=== PATIENT | male | born 1950 | race Two or more races ===

== ENCOUNTER 2018-08-08 18:23 | Inpatient (IN) | payer MEDICARE, OTHER ==
[~2018-08-08] VITALS: Ht 165.1 cm; Wt 99.8 kg
[2018-08-08 18:23] VITALS: BP 104/63
[2018-08-08] MEDS ORDERED: Nitroglycerin 2% oint pkt TOPIC ONE (18:30)
--- NOTE | 2018-08-08 18:34 | Emergency Room Report ---
History of Present Illness General Chief Complaint: Chest Pain Source: Patient, EMS Present Illness HPI 60-year-old male with history of coronary disease status post coronary artery stent, hypertension, diabetes, hyperlipidemia presents from urgent care center outside of [facility] for midsternal nonradiating chest pressure, he was given nitroglycerin prior to arrival which he reports has helped, and he confirms that he has an aspirin allergy so has refused it. His stop attacher is Dr. Lee at [facility]; he reports the symptoms have been intermitted but worried him more today because last night he felt SOB while trying to sleep. He denies N/V, hemoptysis, f/c, leg pain. He is not currently having chest pressure. Allergies: Coded Allergies: ASPIRIN (Verified Allergy, Unknown, 08/08/18) Patient History Past Medical History: see triage record Reviewed Nursing Documentation: PMH: Agreed; PSxH: Agreed Nursing Documentation-PMH Past Medical History: No History, Except For Hx Cardiac Problems: Yes - angio with stents, high cholesterol Hx Hypertension: Yes Hx Diabetes: Yes Review of Systems All Other Systems: negative except mentioned in HPI Physical Exam Vital Signs Date Time Temp Pulse Resp B/P (MAP) Pulse Ox O2 Delivery O2 Flow Rate FiO2 08/08/18 18:14 98.2 88 18 104/63 98 Room Air Sp02 EP Interpretation: reviewed, normal General Appearance: no apparent distress, alert, non-toxic Head: normocephalic Eyes: bilateral eye normal inspection, bilateral eye PERRL, bilateral eye EOMI ENT: normal ENT inspection, hearing grossly normal, normal pharynx, no angioedema, normal voice, moist mucus membranes Neck: normal inspection, full range of motion, supple, supple/symm/no masses Respiratory: chest non-tender, lungs clear, normal breath sounds, chest symmetrical, palpation of chest normal Cardiovascular #1: normal peripheral pulses, regular rate, rhythm, edema - 1+B/ L LE edema to distal tibias Cardiovascular #2: 2+ radial (R), 2+ radial (L) Gastrointestinal: normal inspection, non tender, soft, no mass, no guarding, no rebound Rectal: deferred Genitourinary: normal inspection, no CVA tenderness Musculoskeletal: back normal, gait/station normal, normal range of motion, non- tender, no calf tenderness Neurologic: alert, responsive, ice grinder III-XII nml as tested, motor strength/tone normal, sensory intact, speech normal Psychiatric: judgement/insight normal, memory normal, mood/affect normal, no suicidal/homicidal ideation Skin: normal color, no rash, warm/dry, normal turgor Lymphatic: no adenopathy Medical Decision Making Diagnostic Impression: Primary Impression: Chest pain Additional Impression: ACS (acute coronary syndrome) ER Course Patient currently with no active chest pain, nitroglycerin paste chest wall, multiple risk factors, sent by his stop attacher, but [facility] divert, will admit. EKG Diagnostic Results EKG Time: 18:33 EP Interpretation: no st-t changes Rate: normal ST Segments: no acute changes ASA given to the pt in ED: No Rhythm Strip Diag. Results Rhythm Strip Time: 18:46 EP Interpretation: yes Rate: 77 Rhythm: NSR, no PVC's, no ectopy Chest X-Ray Diagnostic Results Chest X-Ray Diagnostic Results : Chest X-Ray Ordered: Yes # of Views/Limited/Complete: 1 View Indication: Chest Pain EP Interpretation: Yes Interpretation: no consolidation, no effusion, no pneumothorax, other - pulm vasc congestion Impression: No acute disease Electronically Signed by: Kelly Faulkner MD Last Vital Signs Date Time Temp Pulse Resp B/P (MAP) Pulse Ox O2 Delivery O2 Flow Rate FiO2 08/08/18 18:14 98.2 88 18 104/63 98 Room Air Disposition: ADMITTED INPATIENT Condition: Stable Signed Out To: KELLY Yung M.D Aug 08, 2018 18:34
[2018-08-08 19:14] LABS: BASOPHILS % (AUTO) 0.5 % (0.0-2.0); HEMATOCRIT 45.5 % (42.0-52.0); HEMOGLOBIN 14.9 G/DL (14.2-18.0); LYMPHOCYTES % (AUTO) 29.5 % (20.0-45.0); MEAN CORPUSCULAR VOLUME 86 FL (80-99); MONOCYTES % (AUTO) 5.4 % (1.0-10.0); NEUTROPHILS % (AUTO) 63.6 % (45.0-75.0); PLATELET COUNT 192 K/UL (150-450); RED BLOOD COUNT 5.29 M/UL (4.70-6.10); RED CELL DISTRIBUTION WIDTH 12.2 % (11.6-14.8); WHITE BLOOD COUNT 7.4 K/UL (4.8-10.8)
[2018-08-08 19:27] LABS: ANION GAP 11 mmol/L (5-15); BLOOD UREA NITROGEN 18 mg/dL (7-18); CALCIUM 9.1 MG/DL (8.5-10.1); CARBON DIOXIDE 29 MMOL/L (21-32); CHLORIDE 101 MMOL/L (98-107); CREATININE 1.2 MG/DL (0.55-1.30); POTASSIUM 3.4 MMOL/L (3.5-5.1); SODIUM 141 MMOL/L (136-145)
[2018-08-08 19:39] LABS: ALANINE AMINOTRANSFERASE 72 U/L (12-78); ALBUMIN 3.5 G/DL (3.4-5.0); ALBUMIN/GLOBULIN RATIO 0.7 (1.0-2.7); ALKALINE PHOSPHATASE 51 U/L (46-116); ASPARTATE AMINO TRANSFERASE 36 U/L (15-37); BILIRUBIN,TOTAL 0.3 MG/DL (0.2-1.0)
[2018-08-08 20:41] VITALS: BP 111/65
[2018-08-08] MEDS ORDERED: DALIRESP500 MCG PO (21:17)
[2018-08-08 22:05] VITALS: BP 144/86
[2018-08-08 22:25] VITALS: BP 113/62
[2018-08-08] MEDS ORDERED: Metoprolol 25mg tab ORAL SCH (23:30)
[2018-08-09] VITALS: BP 124/70
[2018-08-09 04:00] VITALS: BP 126/82
[2018-08-09] MEDS ORDERED: Heparin 5000 units/ml inj SUBQ SCH (06:00)
[2018-08-09] MEDS ORDERED: NovoLOG Insulin Flexpen SUBQ SCH ×2 (06:30)
[2018-08-09 08:00] VITALS: BP 128/82
[2018-08-09 08:35] LABS: BASOPHILS % (AUTO) 0.6 % (0.0-2.0); EOSINOPHILS % (AUTO) 1.3 % (0.0-3.0); HEMATOCRIT 46.1 % (42.0-52.0); HEMOGLOBIN 15.2 G/DL (14.2-18.0); LYMPHOCYTES % (AUTO) 31.9 % (20.0-45.0); MEAN CORPUSCULAR VOLUME 87 FL (80-99); MONOCYTES % (AUTO) 6.9 % (1.0-10.0); NEUTROPHILS % (AUTO) 59.4 % (45.0-75.0); PLATELET COUNT 213 K/UL (150-450); RED BLOOD COUNT 5.31 M/UL (4.70-6.10); RED CELL DISTRIBUTION WIDTH 12.3 % (11.6-14.8); WHITE BLOOD COUNT 7.3 K/UL (4.8-10.8)
[2018-08-09 09:14] LABS: ALANINE AMINOTRANSFERASE 70 U/L (12-78); ALBUMIN 3.6 G/DL (3.4-5.0); ALBUMIN/GLOBULIN RATIO 0.8 (1.0-2.7); ALKALINE PHOSPHATASE 53 U/L (46-116); ANION GAP 6 mmol/L (5-15); ASPARTATE AMINO TRANSFERASE 33 U/L (15-37); BILIRUBIN,TOTAL 0.4 MG/DL (0.2-1.0); BLOOD UREA NITROGEN 16 mg/dL (7-18); CALCIUM 9.2 MG/DL (8.5-10.1); CARBON DIOXIDE 30 MMOL/L (21-32); CHLORIDE 105 MMOL/L (98-107); CHOLESTEROL 161 MG/DL (< 200); HDL CHOLESTEROL 55 MG/DL (40-60); POTASSIUM 4.8 MMOL/L (3.5-5.1); SODIUM 141 MMOL/L (136-145); TRIGLYCERIDES 112 MG/DL (30-150)
--- NOTE | 2018-08-09 09:20 | Diagnostic Imaging Report ---
Indication: Chest pain Technique: One view of the chest Comparison: none Findings: Suboptimal inspiration. Lungs and pleural spaces are clear. There is degenerative spondylosis Impression: No acute process
--- NOTE | 2018-08-09 16:01 | Cardiology Report ---
APPROVED REPORT EKG Measurement Heart [id number] Normal sinus rhythm Right bundle branch block Abnormal ECG
--- NOTE | 2018-08-10 03:15 | History and Physical Report ---
DATE OF ADMISSION: 08/08/2018 REASON FOR ADMISSION: Chest pain in the setting of known coronary artery disease. HISTORY OF PRESENT ILLNESS: This 68-year-old [place] male has known history of coronary artery disease and has had a prior coronary stent procedure. He has several other risk factors for accelerated coronary atherosclerosis. He was referred to this emergency room by an urgent care center in the [facility] system where he presented with mid substernal nonradiating chest pressure that was unprovoked. The patient was given nitroglycerin in the field and improved. He was not given aspirin due to an allergy. The patient has had episodes of chest pain in the past, however, the patient was more concerned on this occasion because of associated shortness of breath and difficulty sleeping. The patient was chest pain-free upon arrival to the emergency room. MEDICATIONS: His medications prior to admission, reviewed and reconciled. ALLERGIES: Include aspirin. PAST MEDICAL HISTORY: Includes hypertension, coronary artery disease with stent, hyperlipidemia, type 2 diabetes mellitus. FAMILY HISTORY: Noncontributory. SOCIAL HISTORY: He denies smoking, alcohol, or substance abuse. REVIEW OF SYSTEMS: A 10-point review of systems performed. All systems otherwise negative other than pertinent data outlined above. PHYSICAL EXAMINATION: VITAL SIGNS: Afebrile, blood pressure 104/62, pulse 88, respiratory rate 18, and room air oxygen saturations of 98%. HEENT: Normocephalic and atraumatic. Conjunctivae pink. No xanthoma. Oropharynx clear. NECK: Supple. No bruits. Jugular venous pressure normal. LUNGS: Clear. CARDIAC: Regular rhythm and rate. Normal S1, S2 with no murmur, rub, or gallop. ABDOMEN: Soft, nontender. There is no CVA tenderness. CHEST WALL: With no elicited tenderness. EXTREMITIES: Without edema. Good distal pulses noted. NEUROLOGIC: Nonfocal. SKIN: Intact. DIAGNOSTIC DATA: Chest x-ray with no acute process. EKG with sinus rhythm, no acute ST-T wave changes. Troponin I negative. IMPRESSION: This is a 60-year-old male. He has known history of coronary artery disease and several risk factors for accelerated atherosclerosis. He presents with symptoms suggestive of an acute coronary event and is being admitted with diagnosis of acute coronary syndrome. PLAN OF CARE: 1. Cardiac monitoring. 2. Serial troponin levels. Oral clopidogrel in view of aspirin allergy. 3. Beta-blockade. 4. Anti-lipid therapy. 5. No recurring ischemia. 6. We will contact his primary caramel candy maker helper and try to obtain data regarding his most recent cardiac catheterization. Based on this data and his clinical course, consideration for transfer to pursue coronary angiography versus continued medical therapy. 7. We will follow. Rodo Henry M.D. DR: Nela JOB#: [id number] CC:
--- NOTE | 2018-08-11 08:16 | Discharge Summary ---
Discharge Summary Discharge Summary _ DATE OF ADMISSION: 08/08/2018 DATE OF DISCHARGE: 08/09/2018 Patient signed AGAINST MEDICAL ADVICE REASON FOR ADMISSION: 68 years old male with past medical history of hypertension, coronary artery disease with stent, hyperlipidemia, type 2 diabetes mellitus,was referred to the emergency room by urgent care center at [facility], where he presented with a mid substernal nonradiating chest pressure, that was unprovoked. Patient was given nitroglycerin in the field with improvement. Patient did not receive aspirin due to allergy. Patient had episodes of chest pain in the past, however the patient was more concerned on this occasion because of associated shortness of breath and difficulty sleeping. Upon evaluation in emergency room patient was chest pain-free. Vital signs were stable. Troponin was negative. EKG revealed sinus rhythm, no acute ischemic changes. Chest x-ray revealed no acute cardiopulmonary pathology. Patient admitted to rule out acute coronary syndrome due to several risk factors for accelerated atherosclerosis. HOSPITAL COURSE: Patient admitted to [facility]/cardiac monitoring floor. Second troponin was negative. No arrhythmia, no acute ischemic changes on telemetry. Patient started on antiplatelet therapy with Plavix in lieu of aspirin allergy and beta-martín. Lipid panel was stable. Statin was continued. Nitroglycerin was on board as needed. Blood pressure was stable with beta-martín. DVT prophylaxis provided. Supplemental oxygen was on board as needed to keep pulse oximetry above 92%. Pulse oximetry was stable on room air. Blood sugar was managed with sliding scale of insulin. Hemoglobin A1c 7.0 -at goal. Initial potassium replaced and stable next day -4.8. Plan was to contact his primary cementer helper to obtain data regarding the most recent cardiac catheterization. Consideration was given for transfer to pursue coronary angiogram versus continue with conservative medical therapy. Patient decided to sign AGAINST MEDICAL ADVICE. The risks and consequences of signing AGAINST MEDICAL ADVICE were discussed with patient in detail. Patient verbalized understanding, nevertheless signed AMA form and left. FINAL DIAGNOSES: Chest pain Possible acute coronary syndrome Hypertension Diabetes mellitus type 2 Hyperlipidemia Coronary artery disease with stent I have been assigned to dictate discharge summary for this account. I was not involved in the patient's management. Drea Rick NP Aug 11, 2018 08:16
== END 2018-08-09 09:10 | disposition left against medical advice (07) | DRG 311 ==
LOC: EDBD 18:23 → EMR 19:41 → 2W 19:47 → EDBEDREQ 21:02
DX: I24.9 Acute ischemic heart disease, unspecified (principal); I25.10 Atherosclerotic heart disease of native coronary artery without angina pectoris; Z95.5 Presence of coronary angioplasty implant and graft; I10 Essential (primary) hypertension; Z88.6 Allergy status to analgesic agent
CPT/HCPCS: 36415; 71045; 80053; 80061; 82962; 83036; 83880; 84443; 84484; 85025; 93005; 96372; 99285; J1815; J8499